=== PATIENT | male | born 2000 | race Caucasian/White ===

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

== ENCOUNTER 2018-04-15 16:30 | Emergency (ER) | payer BC ==
[2018-04-15 17:41] VITALS: BP 130/71
[2018-04-15] MEDS ORDERED: Azithromycin TAB* 250 MG PO ONE (18:07)
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
== END 2018-04-15 18:45 | disposition home or self-care (01) ==
LOC: UCCORT 16:30
DX: Z20.2 Contact with and (suspected) exposure to infections with a predominantly sexual mode of transmission (principal)
CPT/HCPCS: 87491; 87591; 87661; 99212; A9270-GY; G0463

== ENCOUNTER 2018-06-02 15:38 | Emergency (ER) | payer BC ==
[2018-06-02 16:31] VITALS: BP 121/62
--- NOTE | 2018-06-02 16:35 | UC ---
Complaint Male HPI - HPI Summary HPI Summary: Pt presents with concern for STD exposure. Pt was treated in march 2018 for chlamydia as partner reported positive chlamydia test to pt. Pt returns to clinic with request for treatment again for chlamydia because partner reports that she tested positive within the last few days. Pt denies dysuria or penile discharge - History of Current Complaint Chief Complaint: UCSTDScreening Stated Complaint: PERSONAL Time Seen by Provider: 06/02/18 16:34 Hx Obtained From: Patient Onset/Duration: Sudden Onset Severity Currently: None Pain Intensity: 0 Location: None Associated Signs And Symptoms: Positive: Negative - Risk Factors Testicular Torsion: Negative - Allergies/Home Medications Allergies/Adverse Reactions: Allergies Allergy/AdvReac Type Severity Reaction Status Date / Time No Known Allergies Allergy Verified 06/02/18 16:31 PMH/Surg Hx/FS Hx/Imm Hx Previously Healthy: Yes - Surgical History Surgical History: Yes Surgery Procedure, Year, and Place: TUBES IN EARS - Family History Known Family History: Positive: Unknown, Cardiac Disease - Social History Occupation: Employed Full-time Lives: With Family Alcohol Use: None Substance Use Type: None Smoking Status (MU): Never Smoked Tobacco Have You Smoked in the Last Year: No - Immunization History Most Recent Influenza Vaccination: no Vaccination Up to Date: Yes Review of Systems All Other Systems Reviewed And Are Negative: Yes Constitutional: Positive: Negative Skin: Positive: Negative Eyes: Positive: Negative ENT: Positive: Negative Respiratory: Positive: Negative Cardiovascular: Positive: Negative Gastrointestinal: Positive: Negative Genitourinary: Positive: Negative Motor: Positive: Negative Neurovascular: Positive: Negative Musculoskeletal: Positive: Negative Neurological: Positive: Negative Psychological: Positive: Negative Is Patient Immunocompromised?: No Physical Exam Triage Information Reviewed: Yes Appearance: Well-Appearing Vital Signs: Initial Vital Signs Temp 99.3 F 06/02/18 16:23 Pulse 60 06/02/18 16:23 Resp 16 06/02/18 16:23 BP 121/62 06/02/18 16:23 Pulse Ox 100 06/02/18 16:23 Vital Signs Reviewed: Yes Eye Exam: Normal ENT Exam: Normal Dental Exam: Normal Neck exam: Normal Respiratory: Positive: No respiratory distress Musculoskeletal Exam: Normal Neurological Exam: Normal Psychological Exam: Normal Skin Exam: Normal Complaint Male Course/Dx - Differential Dx/Diagnosis Differential Diagnosis/HQI/PQRI: Epididymitis, Urinary Tract Infection Provider Diagnosis: STD exposure Discharge - Sign-Out/Discharge Documenting (check all that apply): Patient Departure All imaging exams completed and their final reports reviewed: No Studies - Discharge Plan Condition: Stable Disposition: HOME Patient Education Materials: Safe Sex (ED) Referrals: Jose Evans MD [Primary Care Provider] - If Needed - Billing Disposition and Condition Condition: STABLE Disposition: Home
[2018-06-02] MEDS ORDERED: Azithromycin TAB* 250 MG PO ONE (16:39)
== END 2018-06-02 16:49 | disposition home or self-care (01) ==
LOC: UCCORT 15:38
DX: Z20.2 Contact with and (suspected) exposure to infections with a predominantly sexual mode of transmission (principal)
CPT/HCPCS: 87491; 87591; 99212; A9270-GY; G0463

== ENCOUNTER 2018-08-19 11:53 | Emergency (ER) | payer BC ==
[2018-08-19 12:37] VITALS: BP 115/61
[2018-08-19] MEDS ORDERED: Lidocain 1% EPI 1:100,000 * 30 ML MDV INJ ONE (13:17)
--- NOTE | 2018-08-19 13:21 | UC ---
Laceration HPI - HPI Summary HPI Summary: 18 yo male presents here soon after lacerating his right hand with a sawzal He is right handed last Td about 5 yrs ago - History Of Current Complaint Chief Complaint: UCLaceration Stated Complaint: RIGHT HAND LACERATION Time Seen by Provider: 08/19/18 12:46 Hx Obtained From: Patient Laceration Location: Hand - right Onset/Duration: Sudden Onset, Lasting Hours Severity: Mild Pain Intensity: 0 Pain Scale Used: 0-10 Numeric Aggravating Factors: Movement Hands: 1 - laceration - Allergies/Home Medications Allergies/Adverse Reactions: Allergies Allergy/AdvReac Type Severity Reaction Status Date / Time No Known Allergies Allergy Verified 08/19/18 12:33 PMH/Surg Hx/FS Hx/Imm Hx Previously Healthy: Yes - Surgical History Surgical History: Yes Surgery Procedure, Year, and Place: Ear Tubes - Family History Known Family History: Positive: Cardiac Disease - Social History Alcohol Use: Occasionally Substance Use Type: None Smoking Status (MU): Never Smoked Tobacco Have You Smoked in the Last Year: No - Immunization History Most Recent Influenza Vaccination: no Most Recent Tetanus Shot: ~2008 Vaccination Up to Date: Yes Review of Systems All Other Systems Reviewed And Are Negative: Yes Constitutional: Positive: Negative Skin: Positive: Negative Eyes: Positive: Negative ENT: Positive: Negative Respiratory: Positive: Negative Cardiovascular: Positive: Negative Gastrointestinal: Positive: Negative Genitourinary: Positive: Negative Motor: Positive: Negative Neurovascular: Positive: Negative Musculoskeletal: Positive: Negative Neurological: Positive: Negative Psychological: Positive: Negative Physical Exam Vital Signs: Initial Vital Signs Temp 98.2 F 08/19/18 12:31 Pulse 70 08/19/18 12:31 Resp 16 08/19/18 12:31 BP 115/61 08/19/18 12:31 Pulse Ox 99 08/19/18 12:31 Procedures - Laceration/Wound Repair 0 Location: Other - right thenar eminence Description: Linear Anesthesia: Local, 1.0%, Lido, Epi Length, Depth and Shape: 3.2 cm long, 3 mm, linear Betadine Prep?: Yes Irrigated w/ Saline (ccs): 250 Laceration/Wound Explored: clean Closure: Single Layer Debridement: minimal Suture Type: Nylon - 8 4-0 nylon 1 Location: Other - right thenar eminence Description: Linear Anesthesia: Local, 1.0%, Lido, Epi Length, Depth and Shape: 3.2 cm long, 3 mm, linear Betadine Prep?: Yes Irrigated w/ Saline (ccs): 250 Laceration/Wound Explored: clean Closure: Single Layer Debridement: minimal Suture Type: Nylon - 8 4-0 nylon Laceration Repair - Laceration Repair 1 Laceration Size After Repair: Width (mm) Suture Type: Nylon - 8 4-0 nylon Laceration Course/Dx - Diagnosis Provider Diagnosis: Laceration of right hand Discharge - Sign-Out/Discharge Documenting (check all that apply): Patient Departure All imaging exams completed and their final reports reviewed: No Studies - Discharge Plan Condition: Stable Disposition: HOME Patient Education Materials: Care For Your Stitches (DC) Referrals: Jose Evans MD [Primary Care Provider] - If Needed Additional Instructions: rest elevate remove xiomara at bedtime starting tomorrow gently clean twice daily with soap and water apply a thin film of antiboitic ointment return for any concerns of infection get seen NICOLETTE i-increased pain 2- redness 3 -pus tylenol or advil SUTURES OUT IN 10-14 days - Billing Disposition and Condition Condition: STABLE Disposition: Home
[2018-08-19] MEDS ORDERED: Lidocaine 1% MPF wEPI 200,000* 30 ML SDV ONE (13:22)
== END 2018-08-19 14:04 | disposition home or self-care (01) ==
LOC: UCCORT 11:53
DX: S61.411A Laceration without foreign body of right hand, initial encounter (principal); W29.8XXA Contact with other powered hand tools and household machinery, initial encounter; Y92.9 Unspecified place or not applicable
CPT/HCPCS: 12001; 12002; 99211; G0463; J2001